=== PATIENT | female | born 1995 | race Caucasian/White ===

== ENCOUNTER 2017-01-05 17:02 | Emergency (ER) | payer BC ==
[2017-01-05 17:06] VITALS: BP 121/82; PULSE 84; RESP 16; TEMP 98.1; O2SAT 99
[2017-01-05] MEDS ORDERED: HYDROCODONE/APAP 5/325 TAB PO ONE (17:28)
[2017-01-05] MEDS ORDERED: HYDROCODONE/APAP 5/325 TAB ONE (17:29)
--- NOTE | 2017-01-05 17:31 | EDPHY ---
H & P Time Seen by Provider: 01/05/17 17:22 HPI/ROS: CHIEF COMPLAINT: Left lateral ankle pain HISTORY OF PRESENT ILLNESS: 21-year-old female via private vehicle complaining of acute left lateral ankle pain after she slipped on the stairs shortly prior to arrival. No proximal or distal pain or injury. No foot injury. No head injury. No paresthesia. Intact skin. Unable to bear weight. PHYSICAL EXAM (Prior to examination, patient consented to physical exam, hands were washed and my usual and customary physical exam procedures followed) 1) GENERAL: Well-developed, well-nourished, alert and oriented. Appears anxious . 2) HEAD: Normocephalic 3) HEENT: Pupils equal, round, reactive to light bilaterally. 4) LUNGS: Breathing comfortably. 5) MUSCULOSKELETAL: tender to palpation lateral malleolus with soft tissue swelling noted. proximal tibia and fibula nontender .5th MT nontender negative Martin test, compartments soft 6) SKIN: intact no tenting no ecchymosis 7) VASCULAR: DP,PT pulses and cap refill present and brisk DIFFERENTIAL DIAGNOSIS: in no particular order including but not limited to fracture, sprain, compartment syndrome Xray of the left ankle interpreted by myself: no definitive acute osseous abnormality Procedure: Crutches indications for crutch use discussed with patient. Patient fitted for crutches by ER staff. Observed ambulating with crutches. I think the patient has the capacity to safely use crutches. Usual and customary crutch walking precautions provided Procedure: Splint A Noah boot splint was applied by ER registered pharmacy technician. After application of the splint I returned and re-examined the patient. The splint was adequately immobilizing the joint and distal to the splint the patient's circulation and sensation were intact. Patient shows no signs of compartment syndrome. Was given orthopedic precautions. Smoking Status: Former smoker Constitutional: Initial Vital Signs Temperature (C) 36.7 C 01/05/17 17:03 Heart Rate 84 01/05/17 17:03 Respiratory Rate 16 01/05/17 17:03 Blood Pressure 121/82 H 01/05/17 17:03 O2 Sat (%) 99 01/05/17 17:03 Allergies/Adverse Reactions: No Known Allergies Allergy (Unverified 10/04/14 10:14) Home Medications: Medication Instructions Recorded Escitalopram Oxalate [Lexapro 10 10 mg PO DAILY 10/01/14 MG] Omeprazole [Prilosec] 40 mg PO DAILYAC 10/01/14 Norethindrone-E.estradiol-Iron 1 each PO DAILY 10/04/14 [Tilia Fe 28 Tablet] Hydrocodone/APAP 5/325 [[place] 1 - 2 tab PO Q4H PRN #10 tab 10/05/14 5/325 (*)] LORazepam [Ativan (*)] 0.5 - 1 mg PO Q8 PRN #10 tab 10/05/14 Sucralfate [Carafate 1gm/10ml Oral 0.5 gm PO ACHS #30 ml 10/05/14 Liquid (*)] Hydrocodone/APAP 5/325 [[place] 1 tab PO Q6 PRN #10 tab 01/05/17 5/325 (RX)] MDM/Departure - MDM Medications Given: Discontinued Medications Acetaminophen/Hydrocodone Bitart ([place] 5/325) 1 tab PO EDNOW ONE Stop: 01/05/17 17:29 Last Admin: 01/05/17 17:29 Dose: 1 tab ED Course/Re-evaluation: Re-evaluation with serial exams. She is neurovascular intact with soft compartments. Given orthopedic precautions, instructions and follow-up information. - Depart Disposition: Home, Routine, Self-Care Clinical Impression: Left ankle sprain Qualifiers: Encounter type: initial encounter Involved ligament of ankle: unspecified ligament Qualifier Code: (S93.402A) Sprain of unspecified ligament of left ankle , initial encounter Condition: Good Instructions: Ankle Sprain (ED) Additional Instructions: Return to the ER immediately if you experience discoloration, have worsening pain, numbness, tingling, or any other symptoms that concern you. If you received x-rays in the emergency department today, be advised, that ligamentous , tendon, muscular, and other non-bony injury cannot be fully ruled out. Try to keep your affected extremity elevated above the level of your chest, and keep cold packs on the affected area, for the next 48 hours. Prescriptions: Hydrocodone/APAP 5/325 [[place] 5/325 (RX)] 1 tab PO Q6 PRN #10 tab PRN Reason: Pain, Severe Referrals: lAl Cannon MD [Medical Doctor] - 3-4 days, if not improved (Dr. All Cannon is an orthopedic surgeon)
--- NOTE | 2017-01-05 18:02 | DX ---
Left Ankle Series, 3 Views History: Pain following trauma. Findings: Osseous structures are intact without fracture. The ankle mortise has a normal contour. Sof t tissues are unremarkable. Impression: Normal ankle series
== END 2017-01-05 18:18 | disposition home or self-care (01) ==
DX: S93.402A Sprain of unspecified ligament of left ankle, initial encounter (principal); W18.40XA Slipping, tripping and stumbling without falling, unspecified, initial encounter

== ENCOUNTER 2017-03-20 14:01 | Emergency (ER) | payer BC ==
[2017-03-20 14:10] VITALS: RESP 18
[2017-03-20] MEDS ORDERED: NS 1,000 ML IV ONE (14:29)
[2017-03-20] MEDS ORDERED: ONDANSETRON 4 MG/2 ML VIAL ONE (14:29)
[2017-03-20] MEDS ORDERED: ONDANSETRON 4 MG/2 ML VIAL IVP ONE (14:29)
--- NOTE | 2017-03-20 14:31 | EDPHY ---
H & P Stated Complaint: R flank/back pain x 3 days HPI/ROS: CHIEF COMPLAINT: Flank pain HISTORY OF PRESENT ILLNESS: Patient complains of 2-3 days history of right- sided flank pain. It was mild at 1st. Moderate as of last night. Comes and goes. No particular modifying factors. She did pee what I suspect the blood an abnormal a foreign body in the urine. This was this morning. She also notes more urinary frequency but no difficulty starting or stopping. Since then her pain has slowly improved. No fever chills. Some nausea but no vomiting. No diaphoresis. No generalized abdominal pain. No vaginal pelvic pain. No vaginal discharge or bleeding. No other associated complaints or modifying factors. PREVIOUS ABDOMINAL SURGERIES/DIAGNOSES: None REVIEW OF SYSTEMS: Ten systems reviewed and are negative unless otherwise noted in the HPI EXAMINATION: General Appearance: Alert, no distress Head: normocephalic, atraumatic Eyes: Pupils equal and round, no conjunctival pallor or injection ENT, Mouth: Mucous membranes moist. Uvula midline Neck: Normal inspection, supple, non-tender Respiratory: Lungs are clear to auscultation. No wheezing, rhonchi or crackles. Cardiovascular: Regular rate and rhythm. No murmur pulses intact distally Gastrointestinal: Abdomen is soft. Mild right flank tenderness.. No tympany. No rigidity. Non-acute abdomen. Back: non-tender, no bony abnormalities Neurological: A&O, nonfocal, normal gait Skin: Warm and dry, no rash Extremities: Nontender, no pedal edema Psychiatric: Mood and affect normal DIFFERENTIAL DIAGNOSES: Including but not limited to renal colic, renal lithiasis, ureteral stone, cystitis, bladder stone MDM: 2:30 p.m. Adult flank pain with history and examination suggesting stone. Vital signs are stable. No active vomiting. Laboratory studies and US are pending. 3:[address] Ansari and that there is no acute finding on the ultrasound of the retroperitoneum. 4:30 p.m. Urinalysis still pending. 5:15 p.m. Urinalysis is unremarkable for any signs of infection. She is feeling significantly better during my recheck at this time. She has no pain. No nausea vomiting. She is asking to eat something at this time. She is also comfortable with being discharged home. I suspect she may have passed a small stone given the description of her history. She is in stable condition with no pain. She is discharged home with instructions to follow up with primary care physician. She is to return here should she have any return of her pain, nausea vomiting, fever chills. She is comfortable this plan, and discharged home stable condition. ED Precautions: Worsening pain. Fever. Bloody stools. Bloody emesis. Constipation or diarrhea. SUPERVISION: This patient was independently evaluated without direct examination by the attending physician. Case was discussed with attending physician. Source: Patient Exam Limitations: No limitations - Personal History LMP (Females 10-55): IUD In Place Current Tetanus Diphtheria and Acellular Pertussis (TDAP): Yes Tetanus Vaccine Date: 06/2014 - Medical/Surgical History Hx Asthma: No Hx Chronic Respiratory Disease: No Hx Diabetes: No Hx Cardiac Disease: No Hx Renal Disease: No Hx Cirrhosis: No Hx Alcoholism: No Hx HIV/AIDS: No Hx Splenectomy or Spleen Trauma: No Other PMH: ENDOSCOPY COLONOSCOPY TONSILECTOMY, acid reflux, depression - Social History Smoking Status: Current some day smoker Constitutional: Initial Vital Signs Temperature (C) 98.6 F 03/20/17 14:08 Heart Rate 82 03/20/17 14:08 Respiratory Rate 18 03/20/17 14:08 Blood Pressure 100/85 H 03/20/17 14:08 O2 Sat (%) 98 03/20/17 14:08 O2 Delivery Mode Room Air Allergies/Adverse Reactions: No Known Allergies Allergy (Verified 03/20/17 14:06) Home Medications: Medication Instructions Recorded Escitalopram Oxalate [Lexapro 10 10 mg PO DAILY 10/01/14 MG] Minocycline HCl [Solodyn] 1 mg PO DAILY 03/20/17 Medical Decision Making - Diagnostics Imaging Results: Imaging Impressions Abdomen/Pelvis Ultrasound 03/20/17 14:29 Impression: Normal renal ultrasound. Findings discussed with Alfred Conteh PA-C at 15:30 hour, 03/20/2017. - Data Points Laboratory Results: Laboratory Results 03/20/17 14:25 03/20/17 14:25 03/20/17 03/20/17 03/20/17 15:55 14:25 14:25 WBC RBC Hgb Hct MCV MCH MCHC RDW Plt Count MPV Neut % (Auto) Lymph % (Auto) Hart % (Auto) Eos % (Auto) Baso % (Auto) Nucleat RBC Rel Count Absolute Neuts (auto) Absolute Lymphs (auto) Absolute Monos (auto) Absolute Eos (auto) Absolute Basos (auto) Absolute Nucleated RBC Immature Gran % Immature Gran # Sodium 139 mEq/L mEq/L (134-144) Potassium 4.1 mEq/L mEq/L (3.5-5.2) Chloride 107 mEq/L mEq/L (97-110) Carbon Dioxide 22 mEq/l mEq/l (22-31) Anion Gap 10 mEq/L mEq/L (8-16) BUN 12 mg/dL mg/dL (7-23) Creatinine 0.6 mg/dL mg/dL (0.6-1.0) Estimated GFR > 60 Glucose 108 mg/dL H mg/dL (70-100) Calcium 9.5 mg/dL mg/dL (8.5-10.4) Total Bilirubin 0.6 mg/dL mg/dL (0.1-1.4) Conjugated Bilirubin 0.4 mg/dL mg/dL (0.0-0.5) Unconjugated Bilirubin 0.2 mg/dL mg/dL (0.0-1.1) AST 23 IU/L IU/L (14-46) ALT 27 IU/L IU/L (9-52) Alkaline Phosphatase 69 IU/L IU/L (38-126) Total Protein 6.9 g/dL g/dL (6.3-8.2) Albumin 4.4 g/dL g/dL (3.5-5.0) Lipase 98.0 IU/L IU/L (23-300) Beta HCG, Qual NEGATIVE Urine Color PALE YELLOW Urine Appearance CLEAR Urine pH 5.0 (5.0-7.5) Ur Specific [place] 1.008 (1.002-1.030) Urine Protein NEGATIVE (NEGATIVE) Urine Ketones NEGATIVE (NEGATIVE) Urine Blood 1+ H (NEGATIVE) Urine Nitrate NEGATIVE (NEGATIVE) Urine Bilirubin NEGATIVE (NEGATIVE) Urine Urobilinogen NEGATIVE EU EU (0.2-1.0) Ur Leukocyte Esterase NEGATIVE (NEGATIVE) Urine RBC 1-3 /hpf /hpf (0-3) Urine WBC 1-3 /hpf /hpf (0-3) Ur Epithelial Cells TRACE /lpf /lpf (NONE-1+) Urine Mucus TRACE /lpf /lpf (NONE-1+) Ur Culture Indicated? NOT INDICATED (NI) Urine Glucose NEGATIVE (NEGATIVE) 03/20/17 14:25 WBC 9.91 10^3/uL H 10^3/uL (3.80-9.50) RBC 5.49 10^6/uL H 10^6/uL (4.18-5.33) Hgb 15.7 g/dL g/dL (12.6-16.3) Hct 46.8 % % (38.0-47.0) MCV 85.2 fL fL (81.5-99.8) MCH 28.6 pg pg (27.9-34.1) MCHC 33.5 g/dL g/dL (32.4-36.7) RDW 12.1 % % (11.5-15.2) Plt Count 273 10^3/uL 10^3/uL (150-400) MPV 11.3 fL fL (8.7-11.7) Neut % (Auto) 58.5 % % (39.3-74.2) Lymph % (Auto) 29.5 % % (15.0-45.0) Hart % (Auto) 9.2 % % (4.5-13.0) Eos % (Auto) 1.7 % % (0.6-7.6) Baso % (Auto) 0.8 % % (0.3-1.7) Nucleat RBC Rel Count 0.0 % % (0.0-0.2) Absolute Neuts (auto) 5.80 10^3/uL 10^3/uL (1.70-6.50) Absolute Lymphs (auto) 2.92 10^3/uL 10^3/uL (1.00-3.00) Absolute Monos (auto) 0.91 10^3/uL H 10^3/uL (0.30-0.80) Absolute Eos (auto) 0.17 10^3/uL 10^3/uL (0.03-0.40) Absolute Basos (auto) 0.08 10^3/uL 10^3/uL (0.02-0.10) Absolute Nucleated RBC 0.00 10^3/uL 10^3/uL (0-0.01) Immature Gran % 0.3 % % (0.0-1.1) Immature Gran # 0.03 10^3/uL 10^3/uL (0.00-0.10) Sodium Potassium Chloride Carbon Dioxide Anion Gap BUN Creatinine Estimated GFR Glucose Calcium Total Bilirubin Conjugated Bilirubin Unconjugated Bilirubin AST ALT Alkaline Phosphatase Total Protein Albumin Lipase Beta HCG, Qual Urine Color Urine Appearance Urine pH Ur Specific [place] Urine Protein Urine Ketones Urine Blood Urine Nitrate Urine Bilirubin Urine Urobilinogen Ur Leukocyte Esterase Urine RBC Urine WBC Ur Epithelial Cells Urine Mucus Ur Culture Indicated? Urine Glucose Medications Given: Discontinued Medications Sodium Chloride (Ns) 1,000 mls @ 0 mls/hr IV ONCE ONE PRN Reason: Wide Open Stop: 03/20/17 14:30 Last Admin: 03/20/17 14:41 Dose: 1,000 mls Ketorolac Tromethamine (Toradol) 30 mg IVP EDNOW ONE Stop: 03/20/17 15:43 Last Admin: 03/20/17 15:43 Dose: 30 mg Morphine Sulfate (Morphine) 4 mg IVP EDNOW ONE Stop: 03/20/17 14:30 Last Admin: 03/20/17 14:40 Dose: 4 mg Ondansetron HCl (Zofran) 4 mg IVP EDNOW ONE Stop: 03/20/17 14:30 Last Admin: 03/20/17 14:41 Dose: 4 mg Departure - Departure Disposition: Home, Routine, Self-Care Clinical Impression: Acute flank pain Condition: Good Instructions: Flank Pain (ED), Kidney Stones (ED), Renal Colic (ED) Additional Instructions: Return to the emergency department if her symptoms return. Follow up with primary care physician as needed. Referrals: NONE *PRIMARY CARE P,. [Primary Care Provider] - As per Instructions America Davis MD [[facility] Primary Care Provider] - As per Instructions
[2017-03-20 14:38] LABS: % IMMATURE GRANULYOCYTES 0.3 % (0.0-1.1); ABSOLUTE IMMATURE GRANULOCYTES 0.03 10^3/uL (0.00-0.10); ADD DIFF? NO; ADD MORPH? NO; ADD SCAN? NO; ATYPICAL LYMPHOCYTE FLAG 0 (0-99); FRAGMENT RBC FLAG 0 (0-99); HEMATOCRIT 46.8 % (38.0-47.0); HEMOGLOBIN 15.7 g/dL (12.6-16.3); LEFT SHIFT FLG 0 (0-99); LIPEMIA HEMOLYSIS FLAG 80 (0-99); MEAN CELL HEMOGLOBIN 28.6 pg (27.9-34.1); MEAN CELL HEMOGLOBIN CONCENTR. 33.5 g/dL (32.4-36.7); MEAN CELL VOLUME 85.2 fL (81.5-99.8); MEAN PLATELET VOLUME 11.3 fL (8.7-11.7); PLATELET CLUMPS FLAG 10 (0-99); PLATELET COUNT 273 10^3/uL (150-400); RED BLOOD CELL COUNT 5.49 10^6/uL (4.18-5.33); RED CELL DISTRIBUTION WIDTH 12.1 % (11.5-15.2)
[2017-03-20 14:49] LABS: ALANINE AMINOTRANSFERASE 27 IU/L (9-52); ALBUMIN 4.4 g/dL (3.5-5.0); ALKALINE PHOSPHATASE 69 IU/L (38-126); ANION GAP 10 mEq/L (8-16); ASPARTATE AMINOTRANSFERASE 23 IU/L (14-46); BILIRUBIN,TOTAL 0.6 mg/dL (0.1-1.4); BILIRUBIN-CONJUGATED 0.4 mg/dL (0.0-0.5); BILIRUBIN-UNCONJUGATED 0.2 mg/dL (0.0-1.1); CALCIUM 9.5 mg/dL (8.5-10.4); CARBON DIOXIDE 22 mEq/l (22-31); CHLORIDE 107 mEq/L (97-110); CREATININE 0.6 mg/dL (0.6-1.0); GLOMERULAR FILTRATION RATE > 60; GLUCOSE 108 mg/dL (70-100); POTASSIUM 4.1 mEq/L (3.5-5.2); SODIUM 139 mEq/L (134-144); TOTAL PROTEIN 6.9 g/dL (6.3-8.2)
[2017-03-20] MEDS ORDERED: KETOROLAC 30 MG/1 ML SDV ONE (15:41)
[2017-03-20] MEDS ORDERED: KETOROLAC 30 MG/1 ML SDV IVP ONE (15:42)
[2017-03-20 16:14] LABS: COLOR PALE YELLOW; LEUKOCYTE ESTERASE,URINE NEGATIVE (NEGATIVE); NITRITE,URINE NEGATIVE (NEGATIVE)
[2017-03-20 16:21] VITALS: O2SAT 97
[2017-03-20 16:35] LABS: MUCUS TRACE /lpf (NONE-1+)
[2017-03-20 17:26] VITALS: BP 107/85; PULSE 71; TEMP 97.7
== END 2017-03-20 17:26 | disposition home or self-care (01) ==
DX: R10.9 Unspecified abdominal pain (principal); F17.200 Nicotine dependence, unspecified, uncomplicated
CPT/HCPCS: 96374; J1885; J2405

== ENCOUNTER 2017-03-21 14:12 | Emergency (ER) | payer BC ==
[2017-03-21] MEDS ORDERED: NS 1,000 ML IV ONE (15:17)
--- NOTE | 2017-03-21 15:22 | EDPHY ---
H & P Stated Complaint: Right middle back pain Source: Patient, Old records - Personal History LMP (Females 10-55): IUD [address] Current Tetanus/Diphtheria Vaccine: Yes Current Tetanus Diphtheria and Acellular Pertussis (TDAP): Yes Tetanus Vaccine Date: 06/2014 - Medical/Surgical History Hx Asthma: No Hx Chronic Respiratory Disease: No Hx Diabetes: No Hx Cardiac Disease: No Hx Renal Disease: No Hx Cirrhosis: No Hx Alcoholism: No Hx HIV/AIDS: No Hx Splenectomy or Spleen Trauma: No Other PMH: ENDOSCOPY COLONOSCOPY TONSILECTOMY, acid reflux, depression - Social History Smoking Status: Current some day smoker HPI/ROS: CHIEF COMPLAINT: right flank pain HISTORY OF PRESENT ILLNESS: patient presents with ongoing right flank pain. I evaluated this patient in the emergency department yesterday. Since time of discharge, she said she had no worsening of her pain until this morning. She said she felt nauseated yesterday but no pain. This morning the pain returned in the right flank. It is now severe, 10/10. Worse with movement. Nausea but no vomiting. No lower abdominal pain. No upper abdominal pain. No fever chills. No vaginal pain or bleeding. No vaginal discharge or pelvic pain. No other associated complaints or modifying factors. REVIEW OF SYSTEMS: Ten systems reviewed and are negative unless otherwise noted in the HPI PERTINENT MEDICAL HISTORY: Noncontributory EXAMINATION General Appearance: Alert, no distress Head: normocephalic, atraumatic Eyes: Pupils equal and round, no conjunctival pallor or injection ENT, Mouth: Mucous membranes moist. Uvula midline. Neck: Normal inspection, supple, non-tender Respiratory: Lungs are clear to auscultation . No wheezing, rhonchi or crackles. Cardiovascular: Regular rate and rhythm . No murmur. Pulses intact distally. Gastrointestinal: Abdomen is soft and nontender . No tympany rigidity. No distention or guarding. Right CVA tenderness that is mild. Nonacute abdomen. Back: non-tender, no bony abnormalities Neurological: A&O, nonfocal, normal gait Skin: Warm and dry, no rash Extremities: Nontender, no pedal edema Psychiatric: Mood and affect normal DIFFERENTIAL DIAGNOSES: Including but not limited to Renal lithiasis, renal colic, ureteral lithiasis , UTI, pyelonephritis, cholecystitis, cholelithiasis MDM: 3:20 p.m. acute right flank pain. This is worsening from yesterday's presentation. She had improved slightly yesterday but the pain has returned. Vital signs are stable. No active vomiting. Laboratory studies are pending. I will order CT scan of the abdomen pelvis without contrast. 4:30 p.m. laboratory studies are all well within normal limits with exception of the urinalysis. There does appear to be evidence of urinary tract infection with possible contaminant. Her white count has resolved. Her creatinine is normal. CT scan as interpreted by me as no acute findings. Pending the interpretation from the radiologist. She is feeling somewhat better at this time but does still have right flank pain. Started treatment with Rocephin for her urinary tract infection. 4:50 p.m. notified by radiologist Dr. Ansari. CT scan of the abdomen pelvis reveals no acute findings. I have informed the patient of this. We discussed discharge home with treatment for urinary tract infection. She is to follow up with primary care physician. She is to return here for worsening symptoms. I have also discussed the case with Dr. Aguilar, and she is in agreement with this plan. The patient will be discharged home in stable condition. SUPERVISION: Patient was evaluated in conjunction with the supervising physician. Please see their note for details. (Alfred Conteh) Constitutional: Initial Vital Signs Temperature (C) 36.8 C 03/21/17 14:19 Heart Rate 79 03/21/17 14:19 Respiratory Rate 18 03/21/17 14:19 Blood Pressure 111/68 03/21/17 14:19 O2 Sat (%) 98 03/21/17 14:19 O2 Delivery Mode Room Air Allergies/Adverse Reactions: No Known Allergies Allergy (Verified 03/20/17 14:06) Home Medications: Medication Instructions Recorded Escitalopram Oxalate [Lexapro 10 10 mg PO DAILY 10/01/14 MG] Minocycline HCl [Solodyn] 1 mg PO DAILY 03/20/17 Cephalexin [Keflex (*)] 500 mg PO TID #30 cap 03/21/17 Ondansetron Odt [Zofran Odt 4 mg 4 mg PO Q6 PRN #12 tab 03/21/17 (*)] Medical Decision Making Other Provider: The patient wasevaluatedand managed by themidlevel provider. Idiscussed the patient's presentation and course with thephysicianassistantor nurse practitionerand agree with theevaluation. My co-signature indicates that I have reviewed this chart and I agree with the findings and plan of care as documented. I am the secondary supervisingphysician. (Amy Aguilar) - Data Points Laboratory Results: Laboratory Results 03/21/17 15:19 03/21/17 15:19 Microbiology Results: MICROBIOLOGY 03/21/17 16:24 Urine,Clean Catch Urine Culture - Preliminary [place] Types Medications Given: Discontinued Medications Sodium Chloride (Ns) 1,000 mls @ 0 mls/hr IV ONCE ONE PRN Reason: Wide Open Stop: 03/21/17 15:18 Last Admin: 03/21/17 15:34 Dose: 1,000 mls Ceftriaxone Sodium/Dextrose (Rocephin 1 Gm (Premix)) 50 mls @ 100 mls/hr IV EDNOW ONE PRN Reason: Protocol Stop: 03/21/17 16:58 Last Admin: 03/21/17 16:42 Dose: 50 mls Ketorolac Tromethamine (Toradol) 30 mg IVP EDNOW ONE Stop: 03/21/17 16:37 Last Admin: 03/21/17 16:42 Dose: 30 mg Morphine Sulfate (Morphine) 4 mg IVP EDNOW ONE Stop: 03/21/17 15:24 Last Admin: 03/21/17 15:34 Dose: 4 mg Ondansetron HCl (Zofran) 4 mg IVP EDNOW ONE Stop: 03/21/17 15:24 Last Admin: 03/21/17 15:35 Dose: 4 mg Departure - Departure Disposition: Home, Routine, Self-Care Clinical Impression: UTI (urinary tract infection), Flank pain Condition: Good Instructions: Urinary Tract Infection in Women (ED), Flank Pain (ED) Additional Instructions: Medications as discussed. Follow up with primary care physician. Return to ER for worsening symptoms, vomiting or fever Referrals: NONE *PRIMARY CARE P,. [Primary Care Provider] - As per Instructions Lorri Gallagher MD [[facility] [place] Primary Care Provider] - As per Instructions Prescriptions: Cephalexin [Keflex (*)] 500 mg PO TID #30 cap Ondansetron Odt [Zofran Odt 4 mg (*)] 4 mg PO Q6 PRN #12 tab PRN Reason: Nausea/Vomiting, Use 1st
[2017-03-21] MEDS ORDERED: ONDANSETRON 4 MG/2 ML VIAL IVP ONE (15:23)
[2017-03-21 15:32] LABS: % IMMATURE GRANULYOCYTES 0.3 % (0.0-1.1); ABSOLUTE IMMATURE GRANULOCYTES 0.03 10^3/uL (0.00-0.10); ADD DIFF? NO; ADD MORPH? NO; ADD SCAN? NO; ATYPICAL LYMPHOCYTE FLAG 0 (0-99); FRAGMENT RBC FLAG 0 (0-99); HEMATOCRIT 44.4 % (38.0-47.0); LEFT SHIFT FLG 0 (0-99); LIPEMIA HEMOLYSIS FLAG 90 (0-99); MEAN CELL HEMOGLOBIN 28.8 pg (27.9-34.1); MEAN CELL HEMOGLOBIN CONCENTR. 33.8 g/dL (32.4-36.7); MEAN CELL VOLUME 85.2 fL (81.5-99.8); MEAN PLATELET VOLUME 11.2 fL (8.7-11.7); PLATELET CLUMPS FLAG 0 (0-99); PLATELET COUNT 267 10^3/uL (150-400); RED BLOOD CELL COUNT 5.21 10^6/uL (4.18-5.33)
[2017-03-21 15:49] LABS: ALANINE AMINOTRANSFERASE 30 IU/L (9-52); ALBUMIN 4.1 g/dL (3.5-5.0); ALKALINE PHOSPHATASE 65 IU/L (38-126); ANION GAP 9 mEq/L (8-16); ASPARTATE AMINOTRANSFERASE 25 IU/L (14-46); BILIRUBIN,TOTAL 0.6 mg/dL (0.1-1.4); BILIRUBIN-CONJUGATED 0.3 mg/dL (0.0-0.5); BILIRUBIN-UNCONJUGATED 0.3 mg/dL (0.0-1.1); CALCIUM 9.6 mg/dL (8.5-10.4); CARBON DIOXIDE 22 mEq/l (22-31); CHLORIDE 106 mEq/L (97-110); CREATININE 0.6 mg/dL (0.6-1.0); GLOMERULAR FILTRATION RATE > 60; GLUCOSE 87 mg/dL (70-100); POTASSIUM 3.9 mEq/L (3.5-5.2); SODIUM 137 mEq/L (134-144); TOTAL PROTEIN 6.7 g/dL (6.3-8.2)
[2017-03-21 16:23] LABS: COLOR YELLOW; LEUKOCYTE ESTERASE,URINE 3+ (NEGATIVE); NITRITE,URINE NEGATIVE (NEGATIVE)
[2017-03-21 16:26] LABS: BACTERIA TRACE /hpf (NONE SEEN); MUCUS TRACE /lpf (NONE-1+); RBC,URINE 15-25 /hpf (0-3); WBC,URINE 50-182 /hpf (0-3)
[2017-03-21] MEDS ORDERED: KETOROLAC 30 MG/1 ML SDV IVP ONE (16:36)
[2017-03-21 17:42] VITALS: PULSE 58; RESP 14
[2017-03-21 18:02] VITALS: BP 108/70; TEMP 98.6; O2SAT 96
[2017-03-21 18:17] LABS: COLOR PALE YELLOW; LEUKOCYTE ESTERASE,URINE 1+ (NEGATIVE); NITRITE,URINE NEGATIVE (NEGATIVE)
== END 2017-03-21 17:58 | disposition home or self-care (01) ==
DX: N39.0 Urinary tract infection, site not specified (principal); B96.89 Other specified bacterial agents as the cause of diseases classified elsewhere; F17.200 Nicotine dependence, unspecified, uncomplicated
CPT/HCPCS: 96365; J0696; J1885; J2405

== ENCOUNTER 2017-10-02 10:01 | Emergency (ER) | payer BC ==
[2017-10-02 10:13] VITALS: BP 104/57; PULSE 67; RESP 18; TEMP 98.4; O2SAT 97
[2017-10-02] MEDS ORDERED: ONDANSETRON DISINTEGRATING 4 MG TAB PO ONE (11:13)
--- NOTE | 2017-10-02 12:20 | EDPHY ---
H & P Stated Complaint: low back pain/urinary issues/eyes irritated Time Seen by Provider: 10/02/17 11:17 HPI/ROS: Chief complaint: Eye irritation History of present illness: This is a 22-year-old female who presents to the emergency department for evaluation of eye irritation. Patient reports she has had symptoms for the last few days. She primarily reports itching although occasionally they hurt. She denies any precipitating factors. She denies any alleviating factors. She denies other associated signs or symptoms including no fevers or cold symptoms. No history of trauma to the eyes. No discharge from the eyes. No redness of the eyes. No visual disturbances. She does not wear contact lenses or glasses and has never had eye surgery. Patient is also complaining of some low back pain. She reports she has a long history of low back pain as she has broken her coccyx twice. There has been no recent trauma. This is rather typical discomfort. Her back feels very tight. She denies any new trauma. She denies paresthesias, weakness or paralysis or bowel or bladder dysfunction. Patient is also complaining of some urinary urgency. She has a long history of problems with urination. She is followed by urologist but has not seen him in a while. This is typical for her. No associated fever. No dysuria. No abdominal pain. No nausea vomiting or diarrhea. Review of systems: A 10 point review of systems was obtained and other than described above was negative - Personal History LMP (Females 10-55): IUD In Place Current Tetanus/Diphtheria Vaccine: Unsure Tetanus Vaccine Date: 06/2014 - Medical/Surgical History Hx Asthma: No Hx Chronic Respiratory Disease: No Hx Diabetes: No Hx Cardiac Disease: No Hx Renal Disease: No Hx Cirrhosis: No Hx Alcoholism: No Hx HIV/AIDS: No Hx Splenectomy or Spleen Trauma: No Other PMH: ENDOSCOPY COLONOSCOPY TONSILECTOMY, acid reflux, depression - Social History Smoking Status: Former smoker - Physical Exam Exam: General Appearance: Alert, no distress. Eyes: Periorbital tissue is unremarkable. No discharge from the eye. No injection. No subconjunctival hemorrhage. No hyphema. No hypopyon. PERRLA. EOM intact. Red reflex present bilaterally. ENT, Mouth: Tympanic membranes, external auditory canals, external ears and surrounding soft tissue including over the mastoids are unremarkable. Nasopharynx is injected. There is no rhinorrhea. Oropharynx is not injected. There is no edema. There is no exudate. There is no asymmetry. The uvula is midline. No elevation of the tongue. There is no hoarseness, no drooling, no trismus, no stridor. Respiratory: There are no retractions, lungs are clear to auscultation. Cardiovascular: Regular rate and rhythm. Gastrointestinal: Abdomen is soft and non tender, no masses, bowel sounds normal. Genitourinary: No CVA tenderness Neurological: Alert and oriented x4. Strength and sensation intact and symmetrical. Patient ambulating without difficulty. Skin: Warm and dry, no rashes. Musculoskeletal: Neck is supple non tender. Extremities are symmetrical, full range of motion. Psychiatric: Patient is oriented X 3, there is no agitation. Constitutional: Initial Vital Signs Temperature (C) 36.9 C 10/02/17 10:11 Heart Rate 67 10/02/17 10:11 Respiratory Rate 18 10/02/17 10:11 Blood Pressure 104/57 L 10/02/17 10:11 O2 Sat (%) 97 10/02/17 10:11 O2 Delivery Mode Room Air Allergies/Adverse Reactions: No Known Allergies Allergy (Verified 10/02/17 10:10) Home Medications: Medication Instructions Recorded Escitalopram Oxalate [Lexapro 10 10 mg PO DAILY 10/01/14 MG] Minocycline HCl [Solodyn] 1 mg PO DAILY 03/20/17 Cyclobenzaprine [Flexeril 10 MG 10 mg PO TID PRN #15 tab 10/02/17 (*)] Ketotifen Fumarate [Zaditor] 1 drop OP BID #1 btl 10/02/17 MIRENA 10/02/17 Medical Decision Making ED Course/Re-evaluation: Patient seen under the supervision of my primary supervising physician Dr. Bridgett Li. Patient presents complaining of itching and some discomfort in her eyes. She has a benign eye exam. I suspect allergies. I will treat her with allergic eyedrops. She is complaining of chronic low back pain and urinary urgency, again this appears to be chronic for her. I will place her on Flexeril and asked her to use NSAIDs for low back pain. Urinalysis questionable infection but given her history I will allow culture to be obtained before beginning antibiotic treatment. She has an appointment with her primary care doctor tomorrow for recheck. She is asked to keep this appointment. Return precautions given. Patient voiced understanding and agreement with plan. Differential Diagnosis: Included but not limited to conjunctivitis multiple etiologies, corneal abrasion , by for body as well as musculoskeletal sprain or strain, herniated intervertebral disc, unlikely bony fracture cauda equina syndrome as well as urinary tract infection, nephrolithiasis, bladder dysfunction such as overactive bladder - Data Points Microbiology Results: MICROBIOLOGY 10/02/17 10:36 Unspecified Urine Culture - Preliminary Five Or More [place] Types Gram Neg [place] Medications Given: Discontinued Medications Ondansetron HCl (Zofran Odt) 4 mg PO EDNOW ONE Stop: 10/02/17 11:14 Last Admin: 10/02/17 11:28 Dose: 4 mg Departure - Departure Disposition: Home, Routine, Self-Care Clinical Impression: Conjunctivitis Qualifiers: Conjunctivitis type: unspecified Laterality: bilateral Qualified Code(s): H10.9 - Unspecified conjunctivitis Back pain Qualifiers: Back pain location: low back pain Chronicity: unspecified Back pain laterality : unspecified Sciatica presence: without sciatica Qualified Code(s): M54.5 - Low back pain Condition: Good Instructions: Acute Low Back Pain (ED), Conjunctivitis (ED) Additional Instructions: Follow-up with your primary care doctor and urologist for continued evaluation and care Use an [id number] antihistamine such as Claritin or Zyrtec as directed for the next few days for symptom control If symptoms worsen or new symptoms develop return to the emergency room for recheck Referrals: HAL MAHMOOD [Primary Care Provider] - As per Instructions Prescriptions: Cyclobenzaprine [Flexeril 10 MG (*)] 10 mg PO TID PRN #15 tab PRN Reason: Spasms Ketotifen Fumarate [Zaditor] 1 drop OP BID #1 btl
== END 2017-10-02 12:42 | disposition home or self-care (01) ==
DX: H10.9 Unspecified conjunctivitis (principal); M54.5 Low back pain; Z87.891 Personal history of nicotine dependence

== ENCOUNTER 2018-09-12 17:24 | Emergency (ER) | payer BC, OTHER ==
--- NOTE | 2018-09-12 17:43 | EDPHY ---
HPI/HX/ROS/PE/MDM Narrative: CHIEF COMPLAINT: Right lower abdominal pain HPI: The patient is a 23 y/o female with a history of kidney stones complaining of a dull right lower abdominal pain and nausea, onset 2 hours ago. As the pain has been worsening and has remained localized, she became concerned that she had appendicitis. This pain does not feel like prior kidney stones. Her last P.O. was 3 hours ago at 15:00. She denies abnormal vaginal bleeding or discharge; IUD in place. She has had a colonoscopy in the past for a possible stomach ulcer and further exploration after a Celiac diagnosis. No headache, chest pain , shortness of breath, urinary or bowel complaints, numbness, paresthesias, fevers. REVIEW OF SYSTEMS: Aside from elements discussed in the HPI, a comprehensive 10 system review of systems is otherwise negative. PMH: Kidney stones, asthma SOCIAL HISTORY: Student at , lives in [place] PHYSICAL EXAM: General: Patient is alert, in no acute distress. ENT: Eyes are normal to inspection. ENT inspection normal. Neck: Normal inspection. Full range of motion. Respiratory: No respiratory distress. Breath sounds normal bilaterally. Cardiovascular: Regular rate and rhythm. Strong peripheral pulses. Normal cap refill. Abdomen: Moderate right lower quadrant and suprapubic tenderness to palpation. There are no peritoneal signs. There are normal bowel sounds. Back: Normal to inspection. No tenderness to palpation. Skin: Normal color. No rash. Warm and dry. Extremities: Normal appearance. Full range of motion. Neuro: Oriented x3. Normal motor function. Normal sensory function. ED Course: 1949: Patient has a negative abdominal, pelvic, and renal US; abdominopelvic CT ordered. 2039: I spoke with the radiologist who reports that there are no acute findings on patient's abdominopelvic CT. 2044: Reassessed patient and discussed imaging and laboratory findings. Her UA does reveal a UTI. She reports that the Toradol improved her pain. I have prescribed her Macrobid for the UTI and referred her to Dr. Chino, sr. pricing analyst. Return precautions provided; patient is comfortable with this plan. - Data Points Imaging Results: Imaging Impressions Abdomen Ultrasound 09/12/18 18:01 Impression: 1. No definite visualization of the appendix. No secondary signs by ultrasound. 2. IUD in customary position. 3. Dilated periuterine vessels on the left, nonspecific, can be seen in pelvic congestion syndrome. Findings and recommendations discussed with Bala Patel MD at 1746 hour, 09/12/2018. Pelvic/Renal Ultrasound 09/12/18 18:01 Impression: 1. No definite visualization of the appendix. No secondary signs by ultrasound. 2. IUD in customary position. 3. Dilated periuterine vessels on the left, nonspecific, can be seen in pelvic congestion syndrome. Findings and recommendations discussed with Bala Patel MD at 1746 hour, 09/12/2018. Abdomen CT 09/12/18 19:50 Impression: 1. No acute abdominopelvic process. 2. 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 Imaging of this entity is not always accurate and would recommend correlation with symptoms to exclude congestion. Findings and recommendations discussed with Bala Patel MD at 2036 hour, 09/12/2018. Imaging: Discussed imaging studies w/ call center rn Radiologist, I viewed and interpreted images myself Laboratory Results: Laboratory Results 09/12/18 17:45 09/12/18 17:45 09/12/18 09/12/18 09/12/18 18:15 17:49 17:45 WBC RBC Hgb POC Hgb 16.7 gm/dL H gm/dL (12.6-16.3) Hct POC Hct 49 % H % (38-47) MCV MCH MCHC RDW Plt Count MPV Neut % (Auto) Lymph % (Auto) [place] % (Auto) Eos % (Auto) Baso % (Auto) Nucleat RBC Rel Count Absolute Neuts (auto) Absolute Lymphs (auto) Absolute Monos (auto) Absolute Eos (auto) Absolute Basos (auto) Absolute Nucleated RBC Immature Gran % Immature Gran # POC Sodium 140 mEq/L mEq/L (135-145) Sodium POC Potassium 3.9 mEq/L mEq/L (3.3-5.0) Potassium POC Chloride 105 mEq/L mEq/L (97-110) Chloride Carbon Dioxide Anion Gap POC BUN 11 mg/dL mg/dL (7-23) BUN Creatinine POC Creatinine 0.6 mg/dL mg/dL (0.6-1.0) Estimated GFR Glucose POC Glucose 99 mg/dL mg/dL (70-100) Calcium Beta HCG, Qual NEGATIVE Urine Color YELLOW Urine Appearance CLEAR Urine pH 7.0 (5.0-7.5) Ur Specific [place] 1.013 (1.002-1.030) Urine Protein NEGATIVE (NEGATIVE) Urine Ketones NEGATIVE (NEGATIVE) Urine Blood NEGATIVE (NEGATIVE) Urine Nitrate NEGATIVE (NEGATIVE) Urine Bilirubin NEGATIVE (NEGATIVE) Urine Urobilinogen NEGATIVE EU EU (0.2-1.0) Ur Leukocyte Esterase 3+ H (NEGATIVE) Urine RBC 3-5 /hpf H /hpf (0-3) Urine WBC 3-5 /hpf H /hpf (0-3) Ur Epithelial Cells TRACE /lpf /lpf (NONE-1+) Urine Bacteria TRACE /hpf H /hpf (NONE SEEN) Urine Mucus TRACE /lpf /lpf (NONE-1+) Urine Glucose NEGATIVE (NEGATIVE) 09/12/18 09/12/18 17:45 17:45 WBC 10.62 10^3/uL H 10^3/uL (3.80-9.50) RBC 5.65 10^6/uL H 10^6/uL (4.18-5.33) Hgb 15.9 g/dL g/dL (12.6-16.3) POC Hgb Hct 46.9 % % (38.0-47.0) POC Hct MCV 83.0 fL fL (81.5-99.8) MCH 28.1 pg pg (27.9-34.1) MCHC 33.9 g/dL g/dL (32.4-36.7) RDW 12.9 % % (11.5-15.2) Plt Count 355 10^3/uL 10^3/uL (150-400) MPV 11.1 fL fL (8.7-11.7) Neut % (Auto) 57.8 % % (39.3-74.2) Lymph % (Auto) 30.1 % % (15.0-45.0) [place] % (Auto) 8.1 % % (4.5-13.0) Eos % (Auto) 2.8 % % (0.6-7.6) Baso % (Auto) 0.7 % % (0.3-1.7) Nucleat RBC Rel Count 0.0 % % (0.0-0.2) Absolute Neuts (auto) 6.14 10^3/uL 10^3/uL (1.70-6.50) Absolute Lymphs (auto) 3.20 10^3/uL H 10^3/uL (1.00-3.00) Absolute Monos (auto) 0.86 10^3/uL H 10^3/uL (0.30-0.80) Absolute Eos (auto) 0.30 10^3/uL 10^3/uL (0.03-0.40) Absolute Basos (auto) 0.07 10^3/uL 10^3/uL (0.02-0.10) Absolute Nucleated RBC 0.00 10^3/uL 10^3/uL (0-0.01) Immature Gran % 0.5 % % (0.0-1.1) Immature Gran # 0.05 10^3/uL 10^3/uL (0.00-0.10) POC Sodium Sodium 137 mEq/L mEq/L (135-145) POC Potassium Potassium 4.4 mEq/L mEq/L (3.3-5.0) POC Chloride Chloride 103 mEq/L mEq/L (97-110) Carbon Dioxide 22 mEq/l mEq/l (22-31) Anion Gap 12 mEq/L mEq/L (6-14) POC BUN BUN 13 mg/dL mg/dL (7-23) Creatinine 0.7 mg/dL mg/dL (0.6-1.0) POC Creatinine Estimated GFR > 60 Glucose 98 mg/dL mg/dL (70-100) POC Glucose Calcium 10.3 mg/dL mg/dL (8.5-10.4) Beta HCG, Qual Urine Color Urine Appearance Urine pH Ur Specific [place] Urine Protein Urine Ketones Urine Blood Urine Nitrate Urine Bilirubin Urine Urobilinogen Ur Leukocyte Esterase Urine RBC Urine WBC Ur Epithelial Cells Urine Bacteria Urine Mucus Urine Glucose Medications Given: Discontinued Medications Ketorolac Tromethamine (Toradol) 30 mg IVP EDNOW ONE Stop: 09/12/18 18:15 Last Admin: 09/12/18 18:16 Dose: 30 mg Point of Care Test Results: Chemistry 09/12/18 17:49 POC Sodium 140 mEq/L mEq/L (135-145) POC Potassium 3.9 mEq/L mEq/L (3.3-5.0) POC Chloride 105 mEq/L mEq/L (97-110) POC BUN 11 mg/dL mg/dL (7-23) POC Creatinine 0.6 mg/dL mg/dL (0.6-1.0) POC Glucose 99 mg/dL mg/dL (70-100) ISTAT H&H 09/12/18 17:49 POC Hgb 16.7 gm/dL H gm/dL (12.6-16.3) POC Hct 49 % H % (38-47) General Time Seen by Provider: 09/12/18 17:42 Initial Vital Signs: Initial Vital Signs Temperature (C) 36.7 C 09/12/18 17:34 Heart Rate 59 L 09/12/18 17:34 Respiratory Rate 16 09/12/18 17:34 Blood Pressure 123/90 H 09/12/18 17:34 O2 Sat (%) 99 09/12/18 17:34 O2 Delivery Mode Room Air Allergies/Adverse Reactions: No Known Allergies Allergy (Verified 10/02/17 10:10) Home Medications: Medication Instructions Recorded Escitalopram Oxalate [Lexapro 10 10 mg PO DAILY 10/01/14 MG] MIRENA 10/02/17 Nitrofurantoin Monohyd/M-Cryst 100 mg PO BID #10 capsule 09/12/18 [Macrobid 100 mg Capsule] Departure - Departure Disposition: Home, Routine, Self-Care Clinical Impression: Abdominal pain Qualifiers: Abdominal location: right lower quadrant Qualified Code(s): R10.31 - Right lower quadrant pain UTI (urinary tract infection) Qualifiers: Urinary tract infection type: site unspecified Hematuria presence: without hematuria Qualified Code(s): N39.0 - Urinary tract infection, site not specified Instructions: Urinary Tract Infection in Women (ED), Acute Abdominal Pain (ED) Additional Instructions: Take Macrobid as prescribed. Followup with a sr. pricing analyst within the next week. Return to the emergency department immediately for high fever, severe headache or neck pain, difficulty breathing, abdominal pain, rash or other worsening of condition. Referrals: HAL MAHMOOD [Primary Care Provider] - As per Instructions Prescriptions: Nitrofurantoin Monohyd/M-Cryst [Macrobid 100 mg Capsule] 100 mg PO BID #10 capsule Report Scribed for: Bala Patel Report Scribed by: Karissa Mandel Date of Report: 09/12/18 Time of Report: 17:43 Physician Review and Approval Statement: Portions of this note were transcribed by an ED scribe. I personally performed the history, physical exam, and medical decision making; and confirm the accuracy of the information in the transcribed note.
[2018-09-12] MEDS ORDERED: KETOROLAC 30 MG/1 ML SDV IVP ONE (18:14)
[2018-09-12] MEDS ORDERED: KETOROLAC 15 MG/1 ML SDV ONE (18:15)
[2018-09-12 18:37] LABS: PLATELET COUNT 355 10^3/uL (150-400)
[2018-09-12] MEDS ORDERED: IOPAMIDOL (ISOVUE-300) 100 ML BTL ONE (20:00)
[2018-09-12 20:06] VITALS: BP 118/62
== END 2018-09-12 20:47 | disposition home or self-care (01) ==
DX: N39.0 Urinary tract infection, site not specified (principal); Z87.442 Personal history of urinary calculi
CPT/HCPCS: 82435-PO; 82565-PO; 82947-PO; 84132-PO; 84295-PO; 84520-PO; 85014-PO; 96374; J1885; Q9967